=== PATIENT | female | born 1995 | race American Indian/Alaskan Native ===

== ENCOUNTER 2018-08-10 05:37 | Inpatient (IN) | payer MEDICAID ==
[2018-08-10] MEDS ORDERED: LACTATED RINGERS 2,000 ML ONE (06:02)
--- NOTE | 2018-08-10 07:25 | History and Physical Report ---
History of Present Illness Date of examination: 08/10/18 Date of admission: 08/10/18 05:37 Chief complaint: scheduled c/sec History of present illness: 23 yo G P EDC 08/25/18 at 37 weeks here for scheduled c/sec for di di twins. She is a patient of [facility]. She has assumed care since 14 weeks. She has a hx of PIH on asa. She had a previous csec and desires repeat. Hx of BV and HSV2. Undesired fertility Past History Past Medical History: hematologic disorders (sickle cell trait ) Past Surgical History: section [employer] History: herpes Social history: single - Obstetrical History Expected Date of Delivery: 08/25/18 Actual Gestation: 37 Week(s) 6 Day(s) : 2 Para: 2 Hx # Term Pregnancies: 1 Number of Pregnancies: 0 Spontaneous Abortions: 0 Induced : 0 Medications and Allergies Allergies Allergy/AdvReac Type Severity Reaction Status Date / Time No Known Allergies Allergy Unverified 04/12/14 12:15 Home Medications Medication Instructions Recorded Confirmed Last Taken Type Pnv with Ca,No.72/Iron/FA 1 tab PO DAILY 09/29/14 09/29/14 1 Week Ago History [ Plus Tablet] ~09/22/14 Docusate Sodium [Colace] 100 mg PO BID PRN #60 capsule 10/01/14 Unknown Rx Ferrous Sulfate [Feosol 325 MG tab] 325 mg PO TID #90 tablet 10/01/14 Unknown Rx Ibuprofen [Motrin] 600 mg PO Q6H PRN #30 tablet 10/01/14 Unknown Rx Vit-Fe Fumar-FA [ 1 each PO QDAY #30 tablet 10/01/14 Unknown Rx Vitamin] oxyCODONE /ACETAMINOPHEN [Percocet 2 tab PO Q4H PRN #40 tablet 10/01/14 Unknown Rx 5/325] Ferrous Sulfate 325 mg PO BID #60 tablet. 08/10/18 Unknown Rx Ibuprofen [Motrin] 600 mg PO Q8H PRN #30 tablet 08/10/18 Unknown Rx oxyCODONE /ACETAMINOPHEN [Percocet 1 tab PO Q6HR PRN #30 tablet 08/10/18 Unknown Rx 5/325] Active Meds: Active Medications Citric Acid/Sodium Citrate (Bicitra) 30 ml PO ONCE ONE Stop: 08/10/18 07:18 Famotidine (Pepcid) 20 mg IV ONCE ONE Stop: 08/10/18 07:18 Cefazolin Sodium (Ancef/Sterile Water 2 Gm/20 Ml) 2 gm in 20 mls @ 80 mls/hr IV PREOP NR; Protocol Lactated Ringer's (Lactated Ringers) 1,000 mls @ 2,250 mls/hr IV PREOP MELVA Stop: 08/11/18 08:27 Oxytocin/Sodium Chloride (Pitocin/Ns 20 Unit/1000ml Drip) 20 units in 1,000 mls @ 0 mls/hr IV TITR MELVA Metoclopramide HCl (Reglan) 10 mg IV ONCE ONE Stop: 08/10/18 07:18 Review of Systems All systems: negative - Physical Exam Breasts: Positive: normal Cardiovascular: Regular rate, Normal S1 Lungs: Positive: Clear to auscultation, Normal air movement Abdomen: Positive: normal appearance, soft, normal bowel sounds. Negative: distention, tenderness, guarding Genitourinary (Female): Positive: normal external genitalia, normal perenium Vagina: Positive: normal moisture Uterus: Positive: normal size Extremities: Positive: normal. Negative: tenderness Deep Tendon Reflex Grade: Normal +2 - Obstetrical FHR: category 1 Results Result Diagrams: 08/10/18 06:20 All other labs normal. Assessment and Plan A/P IUP 38 weeks MARGARITO twins Previous csec desires infertility scheduled c/sec and BTL consents signed proceed with repeat csec and btl
--- NOTE | 2018-08-10 07:29 | Anesthesia Consultation ---
Anesthesia Consult and Med Hx - Airway Anesthetic Teeth Evaluation: Good ROM Head & Neck: Adequate Mallampati Class: Class II Intubation Access Assessment: Probably Good - Pulmonary Exam CTA: Yes - Cardiac Exam Cardiac Exam: RRR - Pre-Operative Health Status ASA Pre-Surgery Classification: ASA2 Proposed Anesthetic Plan: Spinal - Pulmonary Hx Smoking: No Hx Asthma: No COPD: No Hx Pneumonia: No - Cardiovascular System Hx Hypertension: No - Central Nervous System Hx Seizures: No Hx Psychiatric Problems: No - Endocrine Hx Renal Disease: No Hx End Stage Renal Disease: No Hx Hypothyroidism: No Hx Hyperthyroidism: No - Hematic Hx Anemia: Yes Hx Sickle Cell Disease: No - Other Systems Hx Alcohol Use: No Hx Cancer: (BMI 49.8) Hx Obesity: Yes (BMI 49.8)
--- NOTE | 2018-08-10 07:29 | Anesthesia Day of Surgery ---
Anesthesia Day of Surgery - Day of Surgery Patient Examined: Yes Patient H&P Reviewed: Yes Patient is NPO: Yes Beta Blockers: No Cardiac Clearance: No Pulmonary Clearance: No Sidney's Test: N/A
[2018-08-10] MEDS ORDERED: ZOFRAN IV PRN (07:30)
[2018-08-10] MEDS ORDERED: PHENERGAN PR PRN (07:30)
[2018-08-10] MEDS ORDERED: NARCAN 0.4 MG/1 ML IV PRN ×2 (07:30→09:47)
[2018-08-10] MEDS ORDERED: PHENERGAN PO PRN (07:30)
[2018-08-10 07:34] LABS: Basophils # (Auto) 0.1 K/mm3 (0.0-0.1); Basophils % (Auto) 0.9 % (0.0-1.8); Eosinophils # (Auto) 0.1 K/mm3 (0.0-0.4); Eosinophils % (Auto) 1.1 % (0.0-4.3); Hematocrit 38.5 % (30.3-42.9); Hemoglobin 12.6 gm/dl (10.1-14.3); Lymphocytes # (Auto) 2.6 K/mm3 (1.2-5.4); Lymphocytes % (Auto) 35.4 % (13.4-35.0); Mean Corpuscular HGB Conc 33 % (30-34); Mean Corpuscular Volume 85 fl (79-97); Monocytes # (Auto) 0.4 K/mm3 (0.0-0.8); Monocytes % (Auto) 5.7 % (0.0-7.3); Platelet Count 296 K/mm3 (140-440); Red Blood Count 4.53 M/mm3 (3.65-5.03); Red Cell Distribution Width 15.1 % (13.2-15.2)
[2018-08-10] MEDS ORDERED: LIDOCAINE 1.5%/EPI 1:200,000 INFILTRATI ONE (07:59)
[2018-08-10] MEDS ORDERED: LACTATED RINGERS 1,000 ML IV SCH (08:00)
[2018-08-10] MEDS ORDERED: SODIUM CHLORIDE FLUSH SYRINGE 10 ML IV NR ×2 (08:00→10:00)
[2018-08-10] MEDS ORDERED: PITOCin/NS 20 UNIT/1000ML DRIP 20 UNITS/1,000 ML BAG IV SCH ×2 (08:00→10:00)
[2018-08-10] MEDS ORDERED: ASTRAMORPH PF 10MG/10ML ONE (08:15)
[2018-08-10] MEDS ORDERED: NEO SYNEPHRINE/NS Syringe(OR USE) IV ONE (08:33)
[2018-08-10] MEDS ORDERED: ZOFRAN ONE (08:43)
[2018-08-10] MEDS ORDERED: LACTATED RINGERS 1,000 ML ONE (08:54)
[2018-08-10] MEDS ORDERED: ANCEF/STERILE WATER 2 GM/20 ML 2 GM/20 ML SYRINGE IV NR (09:00)
[2018-08-10] MEDS ORDERED: NACL 0.9% IR ONE (09:00)
[2018-08-10] MEDS ORDERED: REGLAN IV ONE (09:00)
[2018-08-10] MEDS ORDERED: BICITRA PO ONE (09:00)
[2018-08-10] MEDS ORDERED: WATER FOR IRRIG STERILE IR ONE (09:00)
[2018-08-10] MEDS ORDERED: PEPCID IV ONE (09:00)
[2018-08-10] MEDS ORDERED: DILAUDID ONE (09:22)
[2018-08-10] MEDS ORDERED: SUBLIMAZE ONE (09:26)
[2018-08-10] MEDS ORDERED: MILK OF MAGNESIA PO PRN (09:47)
[2018-08-10] MEDS ORDERED: TUCKS PAD TP PRN (09:47)
[2018-08-10] MEDS ORDERED: MYLICON PO PRN (09:47)
[2018-08-10] MEDS ORDERED: ANUCORT-HC PR PRN (09:47)
[2018-08-10] MEDS ORDERED: SENOKOT PO PRN (09:47)
[2018-08-10] MEDS ORDERED: NORCO 5/325 PO PRN (09:47)
[2018-08-10] MEDS ORDERED: MORPHINE IV PRN (09:47)
[2018-08-10] MEDS ORDERED: LANSINOH TP PRN (09:47)
[2018-08-10] MEDS ORDERED: TYLENOL PO PRN (09:47)
--- NOTE | 2018-08-10 10:05 | Procedure Note ---
OB Delivery Note - Delivery Date of Delivery: 08/10/18 Surgeon: SJ RENDON Estimated blood loss: other (2300) - Section Preop diagnosis: repeat Postop diagnosis: same section procedure: section Disposition: PACU Complications: none Narrative: see op note - A at 1 minute: 8 at 5 minutes: 9 Gender: Female (5 pounds 6 oz) B at 1 minute: 6 at 5 minutes: 9 Gender: Female (6 pounds 9 oz)
--- NOTE | 2018-08-10 10:14 | Operative Report ---
Operative Report Operative Report: PREOPERATIVE DIAGNOSES: 1. Intrauterine at 37 weeks. 2. History of previous section x1. The patient desires a repeat section. 3. Di Di twins ( vertex and breech) 4. Undesired future fertility. The patient desires permanent sterilization. 5. Obesity POSTOPERATIVE DIAGNOSES: 1-5 TORIN PROCEDURE: ANESTHESIA: Spinal. ESTIMATED BLOOD LOSS: 2300 mL. COMPLICATIONS: None. FINDINGS: Female infant in cephalic presentation , Apgars were 8 and 9 , and weight 5 pounds 6 ounces. Female breech Apgars 6 and 9 and weight 6 pounds and 9 ounces Normal uterus, tubes, and ovaries were noted. INDICATIONS: The patient is a 23-year-old , para 4 female, who presented to repeat section at term for Di DI twins. The patient has a history of 1 previous sections and she desires a repeat section, additionally she desires permanent fertilization. The procedure was described to the patient in detail including possible risks of bleeding, infection, injury to surrounding organs, and the possible need for further surgery and informed consent was obtained. PROCEDURE NOTE: The patient was taken to the operating room where spinal anesthesia was administered without difficulty. The patient was prepped and draped in the usual sterile fashion in the dorsal supine position with a leftward tilt. A Pfannenstiel skin incision was made with the scalpel and carried through to the underlying layer of fascia using the Bovie. The fascia was incised in the midline and extended laterally using Pineda scissors. Gay clamps were used to elevate the superior aspect of the fascial incision, which was elevated, and the underlying rectus muscles were dissected off bluntly and using Pineda scissors. Attention was then turned to the inferior aspect of the fascial incision, which in similar fashion was grasped with Gay clamps, elevated, and the underlying rectus muscles were dissected off bluntly and using the Bovie. The rectus muscles were dissected in the midline. The peritoneum was identified and entered using Metzenbaum scissors; this incision was extended superiorly and inferiorly with good visualization of the bladder. The bladder blade was inserted. The vesicouterine peritoneum was identified and entered sharply using Metzenbaum scissors. This incision was extended laterally and the bladder flap was created digitally. The bladder blade was reinserted. The lower uterine segment was incised in a transverse fashion using the scalpel and extended using bandage scissors as well as manual traction. Clear fluid was noted. The was subsequently delivered cephalic presentation. The second baby was delivered breech. The nose and mouth were bulb suctioned. The cord was clamped and cut. The infants was subsequently handed to the awaiting nursery nurse. The placenta was delivered spontaneously intact with a three-vessel cord noted. The uterus was exteriorized and cleared of all clots and debris. The uterine incision was repaired in 2 layers using 0 chromic sutures. Hemostasis was visualized. Attention was turned to the right fallopian tube, which was grasped with Phoenix clamp using a modified Moi method, a 2 cm of segment of tube ligated x2, transected and specimen was sent to pathology. Attention was then turned to the left fallopian tube, which was grasped with Allan clamp again using a modified Oxford method, a 2 cm segment of tube was ligated x2 and transected. Hemostasis was visualized bilaterally. The uterus was returned to the abdomen, both fallopian tubes were visualized and were noted to be hemostatic. The uterine incision was reexamined and it was noted to be hemostatic. The pelvis was copiously irrigated. The rectus muscles were reapproximated in the midline using 3-0 Vicryl. The fascia was closed with 0 Vicryl suture, the subcutaneous layer was closed with 3-0 plain gut, and the skin was closed with Ed Needle. Sponge, lap, and instrument counts were correct x2. The patient was stable at the completion of the procedure and was subsequently transferred to the recovery room in stable condition.
[2018-08-10 10:21] LABS: Hematocrit 37.7 % (30.3-42.9); Hemoglobin 12.3 gm/dl (10.1-14.3); Mean Corpuscular HGB Conc 33 % (30-34); Mean Corpuscular Volume 87 fl (79-97); Platelet Count 255 K/mm3 (140-440); Red Blood Count 4.35 M/mm3 (3.65-5.03); Red Cell Distribution Width 15.3 % (13.2-15.2)
[2018-08-10 11:06] LABS: Band Neutrophils # (Manual) 0.1 K/mm3; Total Cells Counted 100
[2018-08-10 11:08] LABS: Anisocytosis 1+; Platelet Estimate Consistent w Auto; Poikilocytosis 1+
[2018-08-10] MEDS ORDERED: LACTATED RINGERS 1,000 ML IV ONE (17:28)
[2018-08-10] MEDS: MORPHINE IV PRN (17:31)
[2018-08-10] MEDS: D5LR 1,000 ML IV SCH (17:33)
[2018-08-10 18:12] LABS: Hematocrit 30.7 % (30.3-42.9); Hemoglobin 10.1 gm/dl (10.1-14.3)
[2018-08-10 21:30] LABS: Hematocrit 29.9 % (30.3-42.9); Hemoglobin 10.1 gm/dl (10.1-14.3)
[2018-08-11] MEDS: MORPHINE IV PRN ×2 (00:34→04:57)
[2018-08-11] MEDS ORDERED: CYTOTEC PR ONE (00:56)
--- NOTE | 2018-08-11 01:02 | Event Note ---
Date: 08/11/18 Called by nursing for excessive vaginal bleeding. Uterine massage performed with improvement in symptoms. Patient will be administered IV pitocin and cytotec per rectum. Continue to monitor closely.
[2018-08-11] MEDS: D5LR 1,000 ML IV SCH (04:13)
[2018-08-11] MEDS ORDERED: BOOSTRIX IM ONE (06:00)
[2018-08-11] MEDS ORDERED: M-M-R II VACCINE SUB-Q ONE (06:00)
[2018-08-11 07:25] LABS: Hematocrit 27.5 % (30.3-42.9); Hemoglobin 9.1 gm/dl (10.1-14.3)
[2018-08-11] MEDS: PERCOCET 5/325 PO PRN ×2 (08:20→17:42)
--- NOTE | 2018-08-11 13:31 | Progress Note ---
Assessment and Plan - Patient Problems (1) Twin delivered Current Visit: Yes Status: Acute (2) hemorrhage Current Visit: Yes Status: Acute Plan to address problem: continue to monitor hemodynamic status closely will initiate antibiotics if patient spikes a temp again Subjective - Subjective Date of service: 08/11/18 Interval history: Patient states vaginal bleeding has improved. Informed by nursing that patient had one temp spike however currently afebrile. Tolerating diet and voiding. Patient reports: appetite normal, voiding normally [place]: doing well Objective - Vital Signs Latest vital signs: Vital Signs Temp Pulse Resp BP BP Pulse Ox 08/11/18 12:05 98.8 F 08/11/18 09:45 99.3 F 08/11/18 07:46 101.1 F H 118 H 20 126/77 99 08/11/18 06:16 99.6 F 121 H 20 120/63 97 08/11/18 05:27 26 H 08/11/18 04:57 26 H 08/11/18 01:04 20 08/11/18 00:34 22 08/10/18 18:32 123 H 18 115/66 99 08/10/18 18:01 20 08/10/18 16:30 98.2 F 131 H 18 115/55 Intake and Output 08/10/18 08/11/18 08/11/18 22:59 06:59 14:59 Intake Total 920 1000 Output Total 400 750 Balance 520 1000 -750 Intake: IV 1000 D5lr 1,000 ml @ 125 mls/ 1000 hr IV DIRECT MELVA Rx#: [id number] Oral 920 Output: Urine 400 750 Indwelling Catheter 400 750 Other: Total, Intake Amount 240 Total, Output Amount 100 750 # Voids Indwelling Catheter 2 1 - Exam Abdomen: Present: normal appearance Incision: Present: dressed - Labs Labs: Abnormal lab results 08/10/18 08/11/18 Range/Units 21:04 06:08 Hgb 9.1 L (10.1-14.3) gm/dl Hct 29.9 L 27.5 L (30.3-42.9) %
[2018-08-11] MEDS: IBUPROFEN PO PRN (18:35)
[2018-08-12] MEDS: IBUPROFEN PO PRN ×3 (00:13→12:31)
[2018-08-12] MEDS: PERCOCET 5/325 PO PRN (04:33)
--- NOTE | 2018-08-12 07:52 | Progress Note ---
Assessment and Plan A/P POD 2 s/p repeat csec and BTL PP hemorrhage -stable tachy-continue watch and hydration trending down close monitor of vss Subjective - Subjective Date of service: 08/12/18 Principal diagnosis: s/p repeat csec and btl, hemorrhage Interval history: 23 yo G P EDC 08/25/18 at 37 weeks here for scheduled c/sec for di di twins. She is a patient of [facility]. She has assumed care since 14 weeks. She has a hx of PIH on asa. She had a previous csec and desires repeat. Hx of BV and HSV2. Undesired fertility Patient reports: appetite normal, voiding normally, pain well controlled, flatus, ambulating normally : doing well Objective - Vital Signs Latest vital signs: Vital Signs Temp Pulse Resp BP Pulse Ox 08/12/18 05:40 18 08/12/18 04:33 18 08/12/18 02:25 97.6 F 90 20 145/81 100 08/12/18 00:13 18 08/11/18 17:42 16 08/11/18 16:30 99.1 F 121 H 20 133/67 99 08/11/18 14:13 98.8 F 08/11/18 12:05 98.8 F 08/11/18 09:45 99.3 F Intake and Output 08/11/18 08/11/18 08/12/18 15:59 23:59 07:59 Intake Total 720 480 240 Output Total 1050 400 Balance -330 80 240 Intake: Oral 240 480 240 Intake, Free Water 480 Output: Urine 1050 400 Indwelling Catheter 750 Void 300 400 Other: Total, Intake Amount 240 240 120 Total, Output Amount 300 400 # Voids Indwelling Catheter 1 Void 1 1 - Exam Breasts: Present: normal Cardiovascular: Present: Regular rate, Normal S1 Lungs: Present: Clear to auscultation, Normal air movement Abdomen: Present: normal appearance, soft, normal bowel sounds. Absent: distention, tenderness, guarding Vulva: both: normal Uterus: Present: normal, firm, fundal height below umbilicus. Absent: bogginess, tenderness Extremities: Present: normal Deep Tendon Reflex Grade: Normal +2 Incision: Present: normal, dry, intact
[2018-08-12] MEDS: FEOSOL PO SCH (10:15)
[2018-08-12] MEDS: PRENATAL VITAMIN PO SCH (10:15)
[2018-08-12] MEDS ORDERED: CITRATE OF MAGNESIA PO PRN (11:00)
[2018-08-13] MEDS: IBUPROFEN PO PRN ×2 (00:32→05:56)
--- NOTE | 2018-08-13 09:05 | Progress Note ---
Assessment and Plan A/P POD 3 s/p repeat csec and BTL PP hemorrhage -stable resolved tachy anemia on iron no further temp spikes D/C home with f/u next week Subjective - Subjective Date of service: 08/13/18 Principal diagnosis: s/p repeat csec and btl, hemorrhage Interval history: 23 yo G P EDC 08/25/18 at 37 weeks here for scheduled c/sec for di di twins. She is a patient of [facility]. She has assumed care since 14 weeks. She has a hx of PIH on asa. She had a previous csec and desires repeat. Hx of BV and HSV2. Undesired fertility Patient reports: appetite normal, voiding normally, pain well controlled, flatus, bowel movement, ambulating normally : doing well Objective - Vital Signs Latest vital signs: Vital Signs Temp Pulse Resp BP BP Pulse Ox 08/13/18 07:46 98.6 F 94 H 20 126/72 98 08/13/18 00:32 18 08/12/18 23:25 98.4 F 95 H 18 139/77 08/12/18 16:07 97.4 F L 92 H 20 128/76 100 08/12/18 13:04 98.2 F 103 H 20 135/75 100 Intake and Output 08/12/18 08/13/18 08/13/18 23:59 07:59 15:59 Intake Total 240 480 Balance 240 480 Intake: Intake, Free Water 240 480 Other: # Voids Void 1 1 - Exam Breasts: Present: normal Cardiovascular: Present: Regular rate, Normal S1 Lungs: Present: Clear to auscultation, Normal air movement Abdomen: Present: normal appearance, soft, normal bowel sounds. Absent: distention, tenderness, guarding Uterus: Present: normal, firm, fundal height below umbilicus. Absent: bogginess Extremities: Present: normal Incision: Present: normal, dry, intact
--- NOTE | 2018-08-13 09:08 | Discharge Summary ---
Providers - Providers Date of Admission: 08/10/18 05:37 Date of discharge: 08/13/18 Attending physician: SJ RENDON MD Primary care physician: SJ RENDON MD Hospitalization Reason for admission: IUP at term Delivery: Procedure: section Episiotomy: none Laceration: none Incision: normal, dry, intact Other procedures: tubal ligation Discharge diagnosis: IUP at term delivered [place] baby: twins Hospital course: Patient delivered twins via csec with BTL. She had >2000 EBL. The next day she had a bleed. She spiked one temp and no further. She was discharged on postop day 3 with normal VS and will f/u next week for check incision and post op. strict precatuions given Condition at discharge: Good Disposition: DC-01 TO HOME OR SELFCARE Plan - Discharge Medications Prescriptions: Ferrous Sulfate 325 mg PO BID #60 tablet. Ibuprofen [Motrin] 600 mg PO Q8H PRN #30 tablet PRN Reason: Pain oxyCODONE /ACETAMINOPHEN [Percocet 5/325] 1 tab PO Q6HR PRN #30 tablet PRN Reason: Pain - Provider Discharge Summary Activity: routine, no sex for 6 weeks, no strenuous exercise Diet: routine Additional instructions: [] Smoking cessation referral if applicable(refer to patient education folder for contact #) [] Refer to [facility] Booklet Call your doctor immediately for: * Fever > 100.5 * Heavy vaginal bleeding ( >1 pad per hour) * Severe persistent headache * Shortness of breath * Reddened, hot, painful area to leg or breast * Drainage or odor from incision. * Keep incision clean and dry at all times and follow doctor's instructions regarding bathing/showering - Follow up plan Follow up: SJ RENDON MD [Primary Care Provider] - 7 Days Forms: [facility] Discharge Summary
[2018-08-13] MEDS: PRENATAL VITAMIN PO SCH (10:30)
[2018-08-13] MEDS: FEOSOL PO SCH (10:31)
[2018-08-13 14:23] VITALS: BP 117/78
== END 2018-08-13 16:00 | disposition home or self-care (01) | DRG 765 ==
LOC: APU 05:37 → OB 11:32
PROVIDERS: ADMIT Obstetrics & Gynecology; ATTEND Obstetrics & Gynecology
PROC: 10D00Z1 Extraction of Products of Conception, Low, Open Approach (ICD-10-PCS; principal; 2018-08-10)
PROC: 0UB70ZZ Excision of Bilateral Fallopian Tubes, Open Approach (ICD-10-PCS; 2018-08-10)
PROC: 3E0234Z Introduction of Serum, Toxoid and Vaccine into Muscle, Percutaneous Approach (ICD-10-PCS; 2018-08-11)
DX: O34.211 Maternal care for low transverse scar from previous cesarean delivery (principal); O72.1 Other immediate postpartum hemorrhage; O30.043 Twin pregnancy, dichorionic/diamniotic, third trimester; O99.02 Anemia complicating childbirth; D64.9 Anemia, unspecified; O99.214 Obesity complicating childbirth; O32.1XX2 Maternal care for breech presentation, fetus 2; E66.01 Morbid (severe) obesity due to excess calories; Z3A.37 37 weeks gestation of pregnancy; Z37.2 Twins, both liveborn; Z71.3 Dietary counseling and surveillance; Z23 Encounter for immunization
CPT/HCPCS: 36415; 85007; 85014; 85018; 85025; 86850; 86900; 86901; 88302; G0378; C9250; J0690; J1170; J2270; J2274; J2370; J2405; J2590; J2765; J3010; J7120; J7121